=== PATIENT | male | born 1950 | race Caucasian/White ===

== ENCOUNTER 2019-12-09 13:48 | Inpatient (IN) ==
[~2019-12-09 13:48] MED LIST: *HR* OxyCODONE Immed Rel 5 MG TABLET PO ONE; Acetaminophen IV 1,000 MG/100 ML INFUS..BTL IVPB ONE; Pregabalin 75 MG CAPSULE PO ONE
[2019-12-09] MEDS ORDERED: Ringers Solution, Lactated 1,000 ML IVC SCH ×2 (14:30→19:44)
[2019-12-09] MEDS ORDERED: Clindamycin 900 MG/50 ML 900 MG/50 ML IV.SOLN IVPB ONE (14:40)
[2019-12-09] MEDS ORDERED: Vancomycin 1,500 MG/265 ML IV.SOLN IVPB ONE (14:43)
[2019-12-09] MEDS ORDERED: Lidocaine -MPF 2% 2 ML VIAL ONE (15:25)
[2019-12-09] MEDS ORDERED: *HR* Midazolam HCl 2 MG/2 ML VIAL ONE (15:38)
[2019-12-09] MEDS ORDERED: *HR* FentaNYL (PF) 100 MCG/2 ML VIAL ONE (15:38)
[2019-12-09] MEDS ORDERED: *HR* HYDROmorphone PF 0.5 MG/0.5 ML SYRINGE IVP PRN (15:39)
[2019-12-09] MEDS ORDERED: *HR* Meperidine 25 MG/ML SYRINGE IVP PRN (15:39)
[2019-12-09] MEDS ORDERED: Ondansetron 4 MG/2 ML VIAL IVP ONE (15:39)
[2019-12-09] MEDS ORDERED: Ethanol\\Acetic Acid\\Na Ace\\Ben 1,000 ML IRRIG.SOLN IR ONE (16:00)
[2019-12-09] MEDS ORDERED: Vancomycin 1,000 MG VIAL ONE (16:00)
[2019-12-09] MEDS ORDERED: Tranexamic Acid 1,000 MG/10 ML VIAL ONE (16:28)
[2019-12-09] MEDS ORDERED: *HR* PHENYLEPHRINE 1,000 MCG/10 ML SYRINGE IVP ONE (16:41)
[2019-12-09] MEDS ORDERED: Total Joint Mixture (50 ml) INTRAART ONE (16:45)
[2019-12-09] MEDS ORDERED: *HR* HYDROMORPHONE 2 MG/ML VIAL ONE (16:45)
[2019-12-09] MEDS ORDERED: EPHEDrine 50 MG/ML VIAL ONE (16:51)
[2019-12-09] MEDS ORDERED: *HR* Vasopressin 20 UNIT/ML VIAL ONE (17:06)
[2019-12-09 18:16] LABS: Basophils % 0.3 %; Eosinophils # 0.1 K/mcL (0.0-0.6); Eosinophils % 1.6 %; Hematocrit 30.6 % (37.5-50.1); Hemoglobin 9.9 g/dL (12.9-16.9); Immature Granulocytes % 0.5 % (0-4); Lymphocytes # 1.7 K/mcL (0.6-4.6); Lymphocytes % 19.4 %; Mean Corpuscular HGB Conc 32.4 g/dL (31.6-35.5); Mean Corpuscular Volume 86.4 fL (83.0-100.0); Mean Platelet Volume 10.3 fL (9.4-12.4); Monocytes # 0.6 K/mcL (0.0-1.3); Monocytes % 7.4 %; Neutrophils # 6.1 K/mcL (1.6-8.9); Platelet Count 119 K/mcL (140-400); Red Blood Count 3.54 M/mcL (4.19-5.50); Segmented Neutrophils % 70.8 %; White Blood Count 8.6 K/mcL (4.3-11.1)
[2019-12-09] MEDS ORDERED: Albumin Human 5% 12.5 GM/250 ML IV.SOLN ONE (18:21)
[2019-12-09 18:44] LABS: Reactive Lymphocytes Present (Not Present)
[2019-12-09 19:23] LABS: Hematocrit 26.9 % (37.5-50.1); Hemoglobin 8.5 g/dL (12.9-16.9)
[2019-12-09] MEDS ORDERED: *HR* Promethazine 25 MG/ML VIAL IVP PRN (19:44)
[2019-12-09] MEDS ORDERED: *HR* Dextrose 50 % in Water (Vial) 50 ML VIAL IVP PRN (19:44)
[2019-12-09] MEDS ORDERED: Naloxone 0.4 MG/ML INJ IVP PRN (19:44)
[2019-12-09] MEDS ORDERED: Dextrose Gel 15 GM/37.5 ML TUBE PO PRN ×2 (19:44)
[2019-12-09] MEDS ORDERED: Ondansetron 4 MG/2 ML VIAL IVP PRN (19:44)
[2019-12-09] MEDS ORDERED: Sennosides 8.6 MG TABLET PO PRN (19:44)
[2019-12-09] MEDS ORDERED: HYDROcodone BIT/Homatropine 5 MG TABLET PO PRN (19:44)
[2019-12-09] MEDS ORDERED: D5% in Water 1,000 ML IVC PRN (19:44)
[2019-12-09] MEDS ORDERED: MOM Conc 10 ML UD.LIQ PO PRN (19:44)
[2019-12-09] MEDS: Ascorbic Acid 500 MG TABLET PO SCH (21:17)
[2019-12-09] MEDS: Insulin LISPRO 300 UNITS/3 ML VIAL SQ SCH ×2 (21:17→21:48)
[2019-12-10] MEDS ORDERED: Vancomycin 1,500 MG/265 ML IV.SOLN IVPB ONE (04:30)
[2019-12-10 05:26] LABS: BUN/Creatinine Ratio 16 (6-26); Blood Urea Nitrogen 21 mg/dL (8-23); Calcium 8.7 mg/dL (8.6-10.3); Carbon Dioxide 20 mEq/L (23-29); Chloride 96 mEq/L (98-107); Glucose 379 mg/dL (70-105); Osmolality,Calculated 287 (280-300); Potassium 3.9 mEq/L (3.5-5.1); Sodium 129 mEq/L (136-145); eGFR For African Americans > 60 (> 60); eGFR For Non-African Americans 56 (> 60)
[2019-12-10] MEDS ORDERED: allopurinoL 300 MG TABLET PO SCH (06:45)
[2019-12-10] MEDS ORDERED: GlipiZIDE 5 MG TABLET PO SCH (06:45)
[2019-12-10] MEDS ORDERED: NON-FORMULARY MEDICATION 1 EACH EACH (Amlodipine Besylate 10 MG) PO SCH (06:45)
[2019-12-10] MEDS ORDERED: NON-FORMULARY MEDICATION 1 EACH EACH (Pravastatin Sodium [Pravachol] 40 MG) PO SCH (06:45)
[2019-12-10 06:59] LABS: Basophils % 0.1 %; Hematocrit 25.4 % (37.5-50.1); Hemoglobin 8.1 g/dL (12.9-16.9); Immature Granulocytes % 0.7 % (0-4); Lymphocytes # 0.7 K/mcL (0.6-4.6); Lymphocytes % 5.3 %; Mean Corpuscular HGB Conc 31.9 g/dL (31.6-35.5); Mean Corpuscular Hemoglobin 26.8 pg (28.0-33.3); Mean Corpuscular Volume 84.1 fL (83.0-100.0); Mean Platelet Volume 10.1 fL (9.4-12.4); Monocytes # 0.4 K/mcL (0.0-1.3); Monocytes % 3.1 %; Neutrophils # 11.9 K/mcL (1.6-8.9); Platelet Count 201 K/mcL (140-400); Red Blood Count 3.02 M/mcL (4.19-5.50); Red Cell Distribution Width 14.1 % (11.5-14.5); Segmented Neutrophils % 90.8 %; White Blood Count 13.1 K/mcL (4.3-11.1)
[2019-12-10] MEDS ORDERED: Multivit/Ca/Min/Fe/FA 1 TAB TABLET PO SCH (09:00)
[2019-12-10] MEDS ORDERED: Aspirin Enteric Coated 81 MG Tablet PO SCH ×2 (09:00)
[2019-12-10] MEDS: Insulin LISPRO 300 UNITS/3 ML VIAL SQ SCH ×4 (09:20→21:02)
[2019-12-10] MEDS: Ascorbic Acid 500 MG TABLET PO SCH ×2 (09:21→16:27)
[2019-12-10] MEDS ORDERED: Lisinopril-HCTZ 20-12.5mg TABLET PO SCH (11:00)
[2019-12-10] MEDS ORDERED: Insulin DETEMIR 100 UNIT/ML X5UNITS SQ ONE (11:07)
[2019-12-10] MEDS: *HR* OxyCODONE Immed Rel 5 MG TABLET PO PRN ×2 (11:46→16:27)
[2019-12-10 14:17] LABS: Estimated Average Glucose 137 mg/dl
[2019-12-11] MEDS: *HR* OxyCODONE Immed Rel 5 MG TABLET PO PRN (04:10)
[2019-12-11 04:21] VITALS: BP 134/60
[2019-12-11] MEDS ORDERED: Vancomycin 1,500 MG/265 ML IV.SOLN IVPB SCH (05:00)
[2019-12-11 06:34] LABS: Basophils % 0.2 %; Eosinophils % 0.2 %; Hematocrit 24.7 % (37.5-50.1); Hemoglobin 8.2 g/dL (12.9-16.9); Immature Granulocytes % 0.9 % (0-4); Lymphocytes # 1.6 K/mcL (0.6-4.6); Lymphocytes % 9.3 %; Mean Corpuscular HGB Conc 33.2 g/dL (31.6-35.5); Mean Corpuscular Hemoglobin 27.9 pg (28.0-33.3); Mean Platelet Volume 10.3 fL (9.4-12.4); Monocytes # 1.1 K/mcL (0.0-1.3); Monocytes % 6.2 %; Neutrophils # 14.3 K/mcL (1.6-8.9); Platelet Count 268 K/mcL (140-400); Red Blood Count 2.94 M/mcL (4.19-5.50); Red Cell Distribution Width 14.4 % (11.5-14.5); Segmented Neutrophils % 83.2 %; White Blood Count 17.3 K/mcL (4.3-11.1)
[2019-12-11 06:45] LABS: BUN/Creatinine Ratio 17 (6-26); Blood Urea Nitrogen 16 mg/dL (8-23); Calcium 9.3 mg/dL (8.6-10.3); Carbon Dioxide 23 mEq/L (23-29); Chloride 105 mEq/L (98-107); Glucose 100 mg/dL (70-105); Osmolality,Calculated 285 (280-300); Potassium 3.5 mEq/L (3.5-5.1); Sodium 137 mEq/L (136-145); eGFR For African Americans > 60 (> 60); eGFR For Non-African Americans > 60 (> 60)
[2019-12-11] MEDS ORDERED: Insulin DETEMIR 100 UNIT/ML X5UNITS SQ SCH (09:00)
[2019-12-11] MEDS ORDERED: allopurinoL 100 MG TABLET PO SCH (09:00)
== END 2019-12-11 08:04 | disposition left against medical advice (07) | DRG 468 ==
LOC: SAMDAY 13:48 → 3NENU 19:36
PROVIDERS: ADMIT Orthopaedic Surgery; ATTEND Orthopaedic Surgery

== ENCOUNTER 2020-01-11 14:56 | Inpatient (IN) ==
[2020-01-11 16:25] LABS: Calcium 8.8 mg/dL (8.6-10.3); Potassium 2.7 mEq/L (3.5-5.1)
[2020-01-11] MEDS ORDERED: 0.9 % Sodium Chloride 1,000 ML IVC ONE (16:26)
[2020-01-11] MEDS ORDERED: Potassium Chloride Elixir 20 MEQ/15 ML UDC PO ONE (16:28)
[2020-01-11 16:59] LABS: Basophils % 0.3 %; Eosinophils # 0.1 K/mcL (0.0-0.6); Eosinophils % 0.9 %; Hemoglobin 7.9 g/dL (12.9-16.9); Immature Granulocytes % 0.6 % (0-4); Lymphocytes # 0.9 K/mcL (0.6-4.6); Lymphocytes % 9.2 %; Mean Corpuscular HGB Conc 30.4 g/dL (31.6-35.5); Mean Corpuscular Hemoglobin 26.1 pg (28.0-33.3); Mean Corpuscular Volume 85.8 fL (83.0-100.0); Monocytes # 1.1 K/mcL (0.0-1.3); Monocytes % 11.1 %; Neutrophils # 7.5 K/mcL (1.6-8.9); Platelet Count 342 K/mcL (140-400); Red Blood Count 3.03 M/mcL (4.19-5.50); Segmented Neutrophils % 77.9 %; White Blood Count 9.6 K/mcL (4.3-11.1)
[2020-01-11] MEDS ORDERED: amLODIPine 5 MG TABLET PO ONE (17:04)
[2020-01-11] MEDS ORDERED: *HR* Promethazine 25 MG/ML VIAL IVP PRN (17:13)
[2020-01-11] MEDS ORDERED: Mag Hydrox/Al Hydrox/Simeth 30 ML UDC PO PRN (17:13)
[2020-01-11] MEDS ORDERED: Acetaminophen 325 MG TABLET PO PRN (17:13)
[2020-01-11] MEDS ORDERED: MOM Conc 10 ML UD.LIQ PO PRN (17:13)
[2020-01-11] MEDS ORDERED: Ondansetron 4 MG/2 ML VIAL IVP PRN (17:13)
[2020-01-11] MEDS ORDERED: *HR* HYDROcodone/Acet 5/325 mg TABLET PO PRN (17:13)
[2020-01-11] MEDS ORDERED: Naloxone 0.4 MG/ML INJ IVP PRN (17:13)
[2020-01-11] MEDS ORDERED: *HR* Dextrose 50 % in Water (Vial) 50 ML VIAL IVP PRN (17:17)
[2020-01-11] MEDS ORDERED: D5% in Water 1,000 ML IVC PRN (17:17)
[2020-01-11] MEDS ORDERED: Dextrose Gel 15 GM/37.5 ML TUBE PO PRN ×2 (17:17)
[2020-01-11] MEDS: 0.9 % Sodium Chloride 1,000 ML IVC SCH (18:21)
[2020-01-11] MEDS: *HR* Heparin 5,000 UNIT/ML VIAL SQ SCH (18:22)
[2020-01-11 20:56] LABS: Bacteria,Urine Few per hpf (None-Few); Bilirubin,Urine Negative (Negative); Blood,Urine Negative (Negative); Clarity,Urine Clear (Clear); Color,Urine Dark-Yellow (Yellow); Glucose,Urine (UA) 50 mg/dL (Normal); Hyaline Casts,Urine Few per lpf (None Seen); Ketones,Urine Negative (Negative); Leukocyte Esterase,Urine Negative (Negative); Mucus,Urine Few per lpf (None-Few); Nitrite,Urine Negative (Negative); PH,Urine 5.5 pH Units (5.0-8.0); Protein,Urine 70 mg/dL (Neg-Trace); RBC,Urine 0-3 per hpf (0-3); Specific Gravity,Urine 1.026 (1.010-1.025); Squamous Epithelial Cell,Urine Few per hpf (None-Few); Urobilinogen,Urine Normal (Normal); WBC,Urine 15-30 per hpf (0-3)
[2020-01-11] MEDS: Insulin LISPRO 300 UNITS/3 ML VIAL SQ SCH (21:00)
[2020-01-11] MEDS: allopurinoL 300 MG TABLET PO SCH (21:01)
[2020-01-11] MEDS: Aspirin Enteric Coated 81 MG Tablet PO SCH (21:01)
[2020-01-11] MEDS: amLODIPine 5 MG TABLET PO SCH (21:01)
[2020-01-12 01:12] LABS: Basophils % 0.3 %; Eosinophils # 0.1 K/mcL (0.0-0.6); Eosinophils % 0.8 %; Hematocrit 26.2 % (37.5-50.1); Hemoglobin 7.6 g/dL (12.9-16.9); Immature Granulocytes % 0.6 % (0-4); Lymphocytes % 8.7 %; Mean Corpuscular Hemoglobin 25.5 pg (28.0-33.3); Mean Corpuscular Volume 87.9 fL (83.0-100.0); Monocytes % 9.4 %; Neutrophils # 8.7 K/mcL (1.6-8.9); Platelet Count 366 K/mcL (140-400); Red Blood Count 2.98 M/mcL (4.19-5.50); Red Cell Distribution Width 17.2 % (11.5-14.5); Segmented Neutrophils % 80.2 %; White Blood Count 10.9 K/mcL (4.3-11.1)
[2020-01-12 01:29] LABS: Albumin 2.9 g/dL (3.5-5.7); Bilirubin,Total 0.5 mg/dL (0.3-1.0); Calcium 8.6 mg/dL (8.6-10.3); Globulin 2.8 g/dL (2.4-3.5); Magnesium 1.8 mg/dL (1.6-2.6); Phosphorous 5.8 mg/dL (2.7-4.5); Potassium 3.3 mEq/L (3.5-5.1); Total Protein 5.7 g/dL (6.4-8.9)
[2020-01-12] MEDS: 0.9 % Sodium Chloride 1,000 ML IVC SCH (03:00)
[2020-01-12] MEDS ORDERED: Ipratropium/Albuterol Neb 3 ML IH ONE (03:23)
[2020-01-12] MEDS: Ipratropium Neb 0.5 MG NEBULIZER IH SCH ×4 (03:45→21:58)
[2020-01-12] MEDS: Levalbuterol Neb 1.25 MG/3 ML IH SCH ×4 (03:45→21:58)
[2020-01-12] MEDS: *HR* Heparin 5,000 UNIT/ML VIAL SQ SCH ×2 (05:33→17:38)
[2020-01-12] MEDS: Insulin LISPRO 300 UNITS/3 ML VIAL SQ SCH ×4 (07:57→21:17)
[2020-01-12] MEDS ORDERED: cefTRIAXone 2,000 MG in Water for inj. (sterile) 20 ML IVP SCH (09:00)
[2020-01-12] MEDS ORDERED: [UNRECOGNIZED DRUG - OTHER] IV SCH (09:00)
[2020-01-12] MEDS ORDERED: Insulin DETEMIR 100 UNIT/ML X5UNITS SQ SCH (09:00)
[2020-01-12] MEDS ORDERED: CEFTRIAXONE NA IV SCH (09:00)
[2020-01-12] MEDS ORDERED: DEXTROSE ISO IV SCH (09:00)
[2020-01-12] MEDS ORDERED: Perflutren Lipid Microsphere 1.3 ML in 0.9 % Sodium Chloride 8.7 ML IVP PRN (10:11)
[2020-01-12] MEDS ORDERED: Nicotine 14 MG PATCH.TD24 TD SCH (10:30)
[2020-01-12] MEDS ORDERED: Finasteride 5 MG TABLET PO SCH (11:00)
[2020-01-12] MEDS: Budesonide/Formoterol 80/4.5 1 PUFF INH IH SCH ×2 (11:37→21:58)
[2020-01-12] MEDS ORDERED: Ringers Solution, Lactated 1,000 ML IVC SCH (16:45)
[2020-01-12] MEDS ORDERED: methylPREDNISolone 125 MG/2 ML VIAL IVP ONE (17:41)
[2020-01-12 18:25] LABS: ABG Base Excess -2 mEq/L (-2 to 3); ABG HCO3 21 mEq/L (21-27); ABG Oxygen Saturation 95 % (95-98); ABG PCO2 30 mmHg (35-45); ABG PH 7.46 pH Units (7.32-7.45); ABG PO2 71 mmHg (85-104); ABG TCO2 22 mEq/L (20-26)
[2020-01-12] MEDS ORDERED: *HR* LORazepam 2 MG/ML VIAL IVP ONE (18:35)
[2020-01-12] MEDS ORDERED: *HR* Alteplase (Cathflo) 2 MG VIAL IVP ONE (19:37)
[2020-01-12] MEDS: allopurinoL 300 MG TABLET PO SCH (21:15)
[2020-01-12] MEDS: Aspirin Enteric Coated 81 MG Tablet PO SCH (21:15)
[2020-01-12] MEDS: amLODIPine 5 MG TABLET PO SCH (21:16)
[2020-01-13] MEDS ORDERED: MethylPREDNISolone 40 MG/ML VIAL IVP SCH
[2020-01-13] MEDS ORDERED: *HR* LORazepam 2 MG/ML VIAL IVP ONE (00:33)
[2020-01-13] MEDS ORDERED: *HR* Metoprolol 5 MG/5 ML VIAL IVP PRN (00:34)
[2020-01-13 01:14] LABS: Hematocrit 27.2 % (37.5-50.1); Mean Corpuscular HGB Conc 29.4 g/dL (31.6-35.5); Mean Corpuscular Hemoglobin 25.6 pg (28.0-33.3); Mean Corpuscular Volume 86.9 fL (83.0-100.0); Platelet Count 402 K/mcL (140-400); Red Blood Count 3.13 M/mcL (4.19-5.50); Red Cell Distribution Width 17.2 % (11.5-14.5)
[2020-01-13 01:34] LABS: Rheumatoid Factor 44 IU/mL (Less than 14)
[2020-01-13] MEDS ORDERED: Insulin LISPRO 300 UNITS/3 ML VIAL SQ ONE (01:45)
[2020-01-13 01:50] LABS: Protein/Creatinine Ratio,Urine 0.3 mg/mg (0.00-0.20); Sodium, Urine 13.1 mEq/L
[2020-01-13 01:53] LABS: Alanine Aminotransferase 18 Units/L (7-52); Albumin 3.1 g/dL (3.5-5.7); Alkaline Phosphatase 202 Units/L (34-104); Aspartate Amino Transferase 63 Units/L (13-39); BUN/Creatinine Ratio 12 (6-26); Bilirubin,Total 0.5 mg/dL (0.3-1.0); Blood Urea Nitrogen 47 mg/dL (8-23); Calcium 8.9 mg/dL (8.6-10.3); Carbon Dioxide 19 mEq/L (23-29); Chloride 97 mEq/L (98-107); Ferritin 143 ng/mL (20-250); Globulin 3.1 g/dL (2.4-3.5); Glucose 268 mg/dL (70-105); Iron < 10 mcg/dL (65-175); Magnesium 1.9 mg/dL (1.6-2.6); Osmolality,Calculated 302 (280-300); Phosphorous 6.8 mg/dL (2.7-4.5); Potassium 3.6 mEq/L (3.5-5.1); Sodium 135 mEq/L (136-145); Total Protein 6.2 g/dL (6.4-8.9); Transferrin 266 mg/dL (203-362); eGFR For African Americans 19 (> 60); eGFR For Non-African Americans 16 (> 60)
[2020-01-13 02:04] LABS: Folate > 22.3 ng/mL (3.0-16.0); Vitamin B12 > 1500 pg/mL (250-1100)
[2020-01-13 02:41] LABS: Complement C3 96 mg/dL (87-200)
[2020-01-13] MEDS: Ipratropium Neb 0.5 MG NEBULIZER IH SCH ×4 (03:49→21:59)
[2020-01-13] MEDS: Levalbuterol Neb 1.25 MG/3 ML IH SCH ×4 (03:49→21:59)
[2020-01-13 04:04] LABS: ABG Base Excess -5 mEq/L (-2 to 3); ABG HCO3 19 mEq/L (21-27); ABG Oxygen Saturation 98 % (95-98); ABG PCO2 28 mmHg (35-45); ABG PH 7.44 pH Units (7.32-7.45); ABG PO2 94 mmHg (85-104); ABG TCO2 20 mEq/L (20-26)
[2020-01-13] MEDS ORDERED: DilTIAZem 50 MG/50 ML IV.SOLN IVC SCH (04:15)
[2020-01-13] MEDS: *HR* Heparin 5,000 UNIT/ML VIAL SQ SCH (05:30)
[2020-01-13] MEDS ORDERED: Perflutren Lipid Microsphere 1.3 ML in 0.9 % Sodium Chloride 8.7 ML IVP PRN (07:23)
[2020-01-13] MEDS ORDERED: Ondansetron 4 MG/2 ML VIAL IVP PRN (07:23)
[2020-01-13] MEDS ORDERED: Dextrose Gel 15 GM/37.5 ML TUBE PO PRN ×2 (07:23)
[2020-01-13] MEDS ORDERED: Acetaminophen 325 MG TABLET PO PRN (07:23)
[2020-01-13] MEDS ORDERED: *HR* Dextrose 50 % in Water (Vial) 50 ML VIAL IVP PRN (07:23)
[2020-01-13] MEDS ORDERED: Naloxone 0.4 MG/ML INJ IVP PRN (07:23)
[2020-01-13] MEDS ORDERED: *HR* Promethazine 25 MG/ML VIAL IVP PRN (07:23)
[2020-01-13] MEDS ORDERED: D5% in Water 1,000 ML IVC PRN (07:23)
[2020-01-13] MEDS ORDERED: MOM Conc 10 ML UD.LIQ PO PRN (07:23)
[2020-01-13] MEDS ORDERED: Mag Hydrox/Al Hydrox/Simeth 30 ML UDC PO PRN (07:23)
[2020-01-13] MEDS ORDERED: Insulin LISPRO 300 UNITS/3 ML VIAL SQ SCH (07:30)
[2020-01-13] MEDS: DilTIAZem 50 MG/50 ML IV.SOLN IVC SCH ×2 (08:48→17:51)
[2020-01-13] MEDS ORDERED: Insulin DETEMIR 100 UNIT/ML X5UNITS SQ SCH ×2 (09:00→21:00)
[2020-01-13] MEDS: Nicotine 14 MG PATCH.TD24 TD SCH (09:11)
[2020-01-13] MEDS: Insulin LISPRO 300 UNITS/3 ML VIAL SQ SCH ×5 (09:15→20:10)
[2020-01-13] MEDS: cefTRIAXone 2,000 MG in Water for inj. (sterile) 20 ML IVP SCH (09:15)
[2020-01-13] MEDS: MethylPREDNISolone 40 MG/ML VIAL IVP SCH ×2 (09:16→17:02)
[2020-01-13] MEDS ORDERED: *HR* Heparin 5,000 UNIT/ML VIAL IVP PRN ×2 (10:18)
[2020-01-13] MEDS ORDERED: *HR* Heparin 5,000 UNIT/ML VIAL IVP ONE (10:18)
[2020-01-13] MEDS: Budesonide/Formoterol 80/4.5 1 PUFF INH IH SCH ×2 (10:51→21:59)
[2020-01-13] MEDS ORDERED: Sodium Bicarbonate 75 MEQ in 0.45 % Sodium Chloride 1,000 ML IVC SCH (11:15)
[2020-01-13 11:35] LABS: Heparin anti-factor XA UFH 0.05 IU/mL (0.30-0.70); INR 1.1; Prothrombin Time 12.3 Seconds (9.4-12.1)
[2020-01-13] MEDS: Heparin 25,000UNIT/250ML 1/2NS 25,000 UNIT/250 ML IV.SOLN IVC SCH (12:06)
[2020-01-13] MEDS: Calcium Acetate 667 MG CAPSULE PO SCH ×2 (12:19→17:02)
[2020-01-13] MEDS: *HR* HYDROcodone/Acet 5/325 mg TABLET PO PRN (12:19)
[2020-01-13] MEDS ORDERED: *HR* Heparin 5,000 UNIT/ML VIAL SQ SCH (18:00)
[2020-01-13] MEDS: amLODIPine 5 MG TABLET PO SCH (19:47)
[2020-01-13] MEDS: allopurinoL 300 MG TABLET PO SCH (19:47)
[2020-01-13] MEDS: Aspirin Enteric Coated 81 MG Tablet PO SCH (19:47)
[2020-01-13] MEDS ORDERED: amLODIPine 5 MG TABLET PO SCH (21:00)
[2020-01-14] MEDS: MethylPREDNISolone 40 MG/ML VIAL IVP SCH ×2 (01:00→07:49)
[2020-01-14 02:05] LABS: Albumin 2.9 g/dL (3.5-5.7); Calcium 8.5 mg/dL (8.6-10.3); Phosphorous 7.7 mg/dL (2.7-4.5); Potassium 3.8 mEq/L (3.5-5.1)
[2020-01-14] MEDS: Levalbuterol Neb 1.25 MG/3 ML IH SCH ×4 (03:32→21:39)
[2020-01-14] MEDS: Ipratropium Neb 0.5 MG NEBULIZER IH SCH ×4 (03:32→21:39)
[2020-01-14] MEDS: Heparin 25,000UNIT/250ML 1/2NS 25,000 UNIT/250 ML IV.SOLN IVC SCH (05:05)
[2020-01-14] MEDS: Nicotine 14 MG PATCH.TD24 TD SCH (07:49)
[2020-01-14] MEDS: Calcium Acetate 667 MG CAPSULE PO SCH ×3 (07:50→17:41)
[2020-01-14] MEDS: Insulin LISPRO 300 UNITS/3 ML VIAL SQ SCH ×6 (07:52→20:54)
[2020-01-14] MEDS: cefTRIAXone 2,000 MG in Water for inj. (sterile) 20 ML IVP SCH (08:00)
[2020-01-14] MEDS ORDERED: Isovue-370 500 ML BOTTLE IVP ONE (08:17)
[2020-01-14] MEDS: *HR* HYDROcodone/Acet 5/325 mg TABLET PO PRN ×2 (09:25→20:31)
[2020-01-14] MEDS: Budesonide/Formoterol 80/4.5 1 PUFF INH IH SCH ×2 (10:22→21:39)
[2020-01-14] MEDS ORDERED: Ringers Solution, Lactated 1,000 ML IVC SCH (11:30)
[2020-01-14 11:49] LABS: Estimated Average Glucose 143 mg/dl
[2020-01-14] MEDS ORDERED: Gadolinium Contrast Agent (WT Based) IV PRN (15:28)
[2020-01-14] MEDS ORDERED: 0.9 % Sodium Chloride 1,000 ML IVC ONE (16:11)
[2020-01-14] MEDS ORDERED: Insulin LISPRO 300 UNITS/3 ML VIAL SQ SCH (17:00)
[2020-01-14] MEDS: *HR* Heparin 5,000 UNIT/ML VIAL SQ SCH (17:44)
[2020-01-14 18:47] LABS: Basophils % 0.1 %; Nucleated Red Blood Cells 0.1 /100 WBC (0)
[2020-01-14 18:48] LABS: Lymphocytes # 0.9 K/mcL (0.6-4.6); Red Blood Count 2.68 M/mcL (4.19-5.50); White Blood Count 28.6 K/mcL (4.3-11.1)
[2020-01-14 18:49] LABS: Hematocrit 23.6 % (37.5-50.1); Hemoglobin 7.1 g/dL (12.9-16.9); Immature Granulocytes % 0.8 % (0-4); Mean Corpuscular HGB Conc 30.1 g/dL (31.6-35.5); Mean Corpuscular Hemoglobin 26.5 pg (28.0-33.3); Mean Corpuscular Volume 88.1 fL (83.0-100.0); Mean Platelet Volume 10.4 fL (9.4-12.4); Monocytes # 1.2 K/mcL (0.0-1.3); Monocytes % 4.2 %; Neutrophils # 26.3 K/mcL (1.6-8.9); Platelet Count 464 K/mcL (140-400); Red Cell Distribution Width 17.3 % (11.5-14.5); Segmented Neutrophils % 91.9 %
[2020-01-14 19:20] LABS: Anisocytosis 1+ (Not Present)
[2020-01-14] MEDS: Aspirin Enteric Coated 81 MG Tablet PO SCH (20:40)
[2020-01-14] MEDS: amLODIPine 5 MG TABLET PO SCH (20:40)
[2020-01-14] MEDS: Sodium Bicarbonate 75 MEQ in 0.45 % Sodium Chloride 1,000 ML IVC SCH (20:40)
[2020-01-14] MEDS: allopurinoL 300 MG TABLET PO SCH (20:40)
[2020-01-14] MEDS ORDERED: Insulin DETEMIR 100 UNIT/ML X5UNITS SQ SCH (21:00)
[2020-01-15 02:25] LABS: Bacteria,Urine Moderate per hpf (None-Few); Bilirubin,Urine Negative (Negative); Blood,Urine Large (Negative); Clarity,Urine Ex.Turbid (Clear); Glucose,Urine (UA) 150 mg/dL (Normal); Ketones,Urine Trace mg/dL (Negative); Leukocyte Esterase,Urine Trace (Negative); Mucus,Urine Few per lpf (None-Few); Nitrite,Urine Negative (Negative); PH,Urine 5.5 pH Units (5.0-8.0); Protein,Urine >=300 mg/dL (Neg-Trace); RBC,Urine TNTC per hpf (0-3); Specific Gravity,Urine > 1.030 (1.010-1.025); Urobilinogen,Urine Normal (Normal); WBC,Urine TNTC per hpf (0-3)
[2020-01-15 02:40] LABS: Color,Urine Brown (Yellow)
[2020-01-15] MEDS: Ipratropium Neb 0.5 MG NEBULIZER IH SCH ×4 (03:53→21:23)
[2020-01-15] MEDS: Levalbuterol Neb 1.25 MG/3 ML IH SCH ×2 (03:53→10:47)
[2020-01-15] MEDS: Sodium Bicarbonate 75 MEQ in 0.45 % Sodium Chloride 1,000 ML IVC SCH ×2 (06:11→18:54)
[2020-01-15] MEDS: *HR* Heparin 5,000 UNIT/ML VIAL SQ SCH ×3 (06:12→20:45)
[2020-01-15 06:45] LABS: Hemoglobin 7.2 g/dL (12.9-16.9); Red Cell Distribution Width 17.2 % (11.5-14.5)
[2020-01-15 06:47] LABS: Hematocrit 24.2 % (37.5-50.1); Immature Reticulocyte % 48.7 % (11.0-38.0); Mean Corpuscular HGB Conc 29.8 g/dL (31.6-35.5); Mean Corpuscular Hemoglobin 25.7 pg (28.0-33.3); Mean Corpuscular Volume 86.4 fL (83.0-100.0); Mean Platelet Volume 9.9 fL (9.4-12.4); Nucleated Red Blood Cells 0.1 /100 WBC (0); Platelet Count 445 K/mcL (140-400); Retculocyte # 0.07 M/mcL (0.05-0.10); Reticulocyte % 2.3 % (1.6-2.8); White Blood Count 28.6 K/mcL (4.3-11.1)
[2020-01-15 07:01] LABS: % Iron Saturation 8 % (20-55); Iron 28 mcg/dL (65-175); Lactate Dehydrogenase 1097 Units/L (140-271); Transferrin 257 mg/dL (203-362)
[2020-01-15 07:02] LABS: Albumin 2.8 g/dL (3.5-5.7); Calcium 8.5 mg/dL (8.6-10.3); Phosphorous 8.6 mg/dL (2.7-4.5); Potassium 4.1 mEq/L (3.5-5.1)
[2020-01-15 07:25] LABS: Anisocytosis 1+ (Not Present); Large Platelets Present (Not Present); Monocytes # 0.6 K/mcL (0.0-1.3); Platelet Estimate Normal (Normal)
[2020-01-15] MEDS ORDERED: Insulin LISPRO 300 UNITS/3 ML VIAL SQ ONE (07:45)
[2020-01-15] MEDS: MethylPREDNISolone 40 MG/ML VIAL IVP SCH (08:00)
[2020-01-15] MEDS: Calcium Acetate 667 MG CAPSULE PO SCH ×4 (08:06→18:39)
[2020-01-15] MEDS: Nicotine 14 MG PATCH.TD24 TD SCH (08:07)
[2020-01-15] MEDS: Insulin DETEMIR 100 UNIT/ML X5UNITS SQ SCH ×2 (08:11→11:22)
[2020-01-15] MEDS: Insulin LISPRO 300 UNITS/3 ML VIAL SQ SCH ×2 (08:31→11:25)
[2020-01-15] MEDS: Budesonide/Formoterol 80/4.5 1 PUFF INH IH SCH ×2 (10:47→21:23)
[2020-01-15] MEDS: cefTRIAXone 2,000 MG in Water for inj. (sterile) 20 ML IVP SCH (11:23)
[2020-01-15] MEDS ORDERED: D5% in Water 1,000 ML IVC PRN (12:10)
[2020-01-15] MEDS ORDERED: Dextrose Gel 15 GM/37.5 ML TUBE PO PRN ×2 (12:10)
[2020-01-15] MEDS ORDERED: *HR* Dextrose 50 % in Water (Vial) 50 ML VIAL IVP PRN (12:10)
[2020-01-15] MEDS ORDERED: 0.9 % Sodium Chloride 500 ML IVC SCH (12:45)
[2020-01-15] MEDS ORDERED: *HR* Magnesium Sulfate 1 GM/2 ML VIAL ONE (13:32)
[2020-01-15] MEDS ORDERED: Levalbuterol Neb 0.63 MG/3 ML IH PRN (14:43)
[2020-01-15] MEDS: Piperacillin/Tazobactam 3.375 GM in 0.9 % Sodium Chloride Mini Bag 100 ML IVPB SCH (15:28)
[2020-01-15] MEDS: *HR* HYDROcodone/Acet 5/325 mg TABLET PO PRN ×2 (16:10→20:56)
[2020-01-15] MEDS: Insulin Human Regular 100 UNIT in 0.9 % Sodium Chloride 100 ML IVC SCH ×2 (16:12→23:14)
[2020-01-15] MEDS ORDERED: Insulin LISPRO 300 UNITS/3 ML VIAL SQ SCH ×2 (16:30→21:00)
[2020-01-15 17:48] LABS: ANA IgG by ELISA NONE DETECTED (None Detected)
[2020-01-15] MEDS: Aspirin Enteric Coated 81 MG Tablet PO SCH (20:46)
[2020-01-15] MEDS: allopurinoL 300 MG TABLET PO SCH (20:46)
[2020-01-15] MEDS: *HR* Metoprolol 5 MG/5 ML VIAL IVP PRN (20:47)
[2020-01-16 01:47] LABS: Alpha 2 Globulin (PEP) 0.75 g/dL (0.48-1.05); Beta Globulin (PEP) 0.84 g/dL (0.48-1.10)
[2020-01-16 02:46] LABS: Basophils % 0.1 %; Eosinophils % 0.1 %; Hemoglobin 7.1 g/dL (12.9-16.9); Monocytes % 5.9 %
[2020-01-16 02:48] LABS: Immature Granulocytes % 0.9 % (0-4); Immature Platelets 2.7 % (1.1-6.1); Lymphocytes # 0.6 K/mcL (0.6-4.6); Mean Corpuscular HGB Conc 29.6 g/dL (31.6-35.5); Mean Corpuscular Hemoglobin 25.3 pg (28.0-33.3); Mean Corpuscular Volume 85.4 fL (83.0-100.0); Mean Platelet Volume 10.6 fL (9.4-12.4); Monocytes # 0.9 K/mcL (0.0-1.3); Nucleated Red Blood Cells 0.2 /100 WBC (0); Platelet Count 349 K/mcL (140-400); Red Blood Count 2.81 M/mcL (4.19-5.50); White Blood Count 15.9 K/mcL (4.3-11.1)
[2020-01-16 03:06] LABS: Albumin 2.6 g/dL (3.5-5.7); Calcium 8.6 mg/dL (8.6-10.3); Potassium 3.9 mEq/L (3.5-5.1)
[2020-01-16] MEDS: Ipratropium Neb 0.5 MG NEBULIZER IH SCH ×4 (03:20→21:51)
[2020-01-16 03:29] LABS: Hepatitis B Surface Antigen Nonreactive (Nonreactive)
[2020-01-16] MEDS: Sodium Bicarbonate 75 MEQ in 0.45 % Sodium Chloride 1,000 ML IVC SCH ×2 (03:31→20:49)
[2020-01-16 03:46] LABS: Neutrophils # 14.2 K/mcL (1.6-8.9)
[2020-01-16 03:58] LABS: Hepatitis C Virus Antibody Nonreactive (Nonreactive)
[2020-01-16] MEDS: Piperacillin/Tazobactam 3.375 GM in 0.9 % Sodium Chloride Mini Bag 100 ML IVPB SCH ×2 (05:29→17:57)
[2020-01-16] MEDS: *HR* Heparin 5,000 UNIT/ML VIAL SQ SCH ×3 (05:30→20:48)
[2020-01-16] MEDS ORDERED: 0.9 % Sodium Chloride 250 ML IVC PRN (07:09)
[2020-01-16] MEDS ORDERED: *HR* Heparin 10,000 UNIT/10 ML VIAL IV PRN (07:09)
[2020-01-16] MEDS ORDERED: 0.9 % Sodium Chloride 1,000 ML PRIME SCH (07:15)
[2020-01-16 07:58] LABS: IFE Reflexed NOT DONE
[2020-01-16] MEDS: MethylPREDNISolone 40 MG/ML VIAL IVP SCH (08:02)
[2020-01-16] MEDS: Nicotine 14 MG PATCH.TD24 TD SCH (08:02)
[2020-01-16] MEDS: Calcium Acetate 667 MG CAPSULE PO SCH ×3 (08:03→17:48)
[2020-01-16] MEDS: Insulin Human Regular 100 UNIT in 0.9 % Sodium Chloride 100 ML IVC SCH ×2 (08:53→23:10)
[2020-01-16 09:18] LABS: Hepatitis B Surface Antibody < 3.10 mIU/mL
[2020-01-16] MEDS ORDERED: Heparin 1,000 UNITS/500 mL 500 ML ONE (09:31)
[2020-01-16] MEDS ORDERED: 0.9 % Sodium Chloride 500 ML ONE ×2 (10:01→15:22)
[2020-01-16] MEDS ORDERED: *HR* Heparin 5,000 UNIT/ML VIAL ONE (10:13)
[2020-01-16] MEDS ORDERED: *HR* Midazolam HCl 2 MG/2 ML VIAL IVP ONE (10:30)
[2020-01-16] MEDS ORDERED: *HR* FentaNYL (PF) 100 MCG/2 ML VIAL ONE (10:31)
[2020-01-16] MEDS ORDERED: *HR* Midazolam HCl 2 MG/2 ML VIAL ONE (10:31)
[2020-01-16] MEDS ORDERED: *HR* FentaNYL (PF) 100 MCG/2 ML VIAL IVP ONE (10:31)
[2020-01-16] MEDS: Budesonide/Formoterol 80/4.5 1 PUFF INH IH SCH ×2 (10:41→21:51)
[2020-01-16 12:31] LABS: Kappa Qnt Free Light Chains 63.87 mg/L (3.30-19.40); Lambda Qnt Free Light Chains 48.25 mg/L (5.71-26.30)
[2020-01-16 14:59] LABS: AFP Tumor Marker Non-Pregnant 3 ng/mL (0-9); Cancer Antigen-GI (CA 19-9) 696 U/mL (0-37)
[2020-01-16] MEDS ORDERED: *HR* Heparin 5,000 UNIT/ML VIAL IVP ONE (16:14)
[2020-01-16] MEDS ORDERED: *HR* Heparin 5,000 UNIT/ML VIAL IVP PRN ×2 (16:14)
[2020-01-16] MEDS ORDERED: Heparin 25,000UNIT/250ML 1/2NS 25,000 UNIT/250 ML IV.SOLN IVC SCH (16:15)
[2020-01-16] MEDS: Aspirin Enteric Coated 81 MG Tablet PO SCH (20:48)
[2020-01-16] MEDS: allopurinoL 300 MG TABLET PO SCH (20:48)
[2020-01-17] MEDS: Ipratropium Neb 0.5 MG NEBULIZER IH SCH ×4 (03:24→22:51)
[2020-01-17] MEDS: *HR* Heparin 5,000 UNIT/ML VIAL SQ SCH ×3 (05:17→22:17)
[2020-01-17] MEDS: Piperacillin/Tazobactam 3.375 GM in 0.9 % Sodium Chloride Mini Bag 100 ML IVPB SCH ×2 (05:18→19:57)
[2020-01-17 06:28] LABS: Basophils % 0.2 %; Eosinophils # 0.1 K/mcL (0.0-0.6); Eosinophils % 0.3 %; Hemoglobin 8.1 g/dL (12.9-16.9); Immature Granulocytes % 0.9 % (0-4); Lymphocytes # 1.1 K/mcL (0.6-4.6); Lymphocytes % 5.4 %; Mean Corpuscular HGB Conc 27.9 g/dL (31.6-35.5); Mean Corpuscular Hemoglobin 25.6 pg (28.0-33.3); Mean Corpuscular Volume 91.8 fL (83.0-100.0); Mean Platelet Volume 10.3 fL (9.4-12.4); Monocytes # 1.7 K/mcL (0.0-1.3); Monocytes % 8.9 %; Neutrophils # 16.4 K/mcL (1.6-8.9); Nucleated Red Blood Cells 0.2 /100 WBC (0); Platelet Count 303 K/mcL (140-400); Red Blood Count 3.16 M/mcL (4.19-5.50); Red Cell Distribution Width 16.8 % (11.5-14.5); Segmented Neutrophils % 84.3 %; White Blood Count 19.5 K/mcL (4.3-11.1)
[2020-01-17 06:44] LABS: Albumin 2.8 g/dL (3.5-5.7); Calcium 8.9 mg/dL (8.6-10.3); Magnesium 2.3 mg/dL (1.6-2.6); Potassium 3.7 mEq/L (3.5-5.1)
[2020-01-17 07:13] LABS: Anisocytosis 1+ (Not Present); Hypochromasia Present (Not Present); Platelet Estimate Normal (Normal)
[2020-01-17] MEDS ORDERED: 0.9 % Sodium Chloride 250 ML IVC PRN (07:31)
[2020-01-17] MEDS ORDERED: *HR* Heparin 10,000 UNIT/10 ML VIAL IV PRN (07:31)
[2020-01-17] MEDS ORDERED: 0.9 % Sodium Chloride 1,000 ML PRIME SCH (07:45)
[2020-01-17 08:43] LABS: Hematocrit 25.6 % (37.5-50.1); Hemoglobin 7.9 g/dL (12.9-16.9)
[2020-01-17 08:44] LABS: Heparin anti-factor XA UFH 0.14 IU/mL (0.30-0.70); INR 1.1; Prothrombin Time 12.1 Seconds (9.4-12.1)
[2020-01-17 08:47] LABS: Activated Partial Thrombo Time 23.8 Seconds (26.0-36.0)
[2020-01-17] MEDS: Budesonide/Formoterol 80/4.5 1 PUFF INH IH SCH ×2 (10:44→22:51)
[2020-01-17] MEDS: Calcium Acetate 667 MG CAPSULE PO SCH ×3 (14:39→19:56)
[2020-01-17] MEDS: Nicotine 14 MG PATCH.TD24 TD SCH (15:16)
[2020-01-17] MEDS ORDERED: Dextrose Gel 15 GM/37.5 ML TUBE PO PRN ×2 (18:26)
[2020-01-17] MEDS ORDERED: D5% in Water 1,000 ML IVC PRN (18:26)
[2020-01-17] MEDS ORDERED: *HR* Dextrose 50 % in Water (Vial) 50 ML VIAL IVP PRN (18:26)
[2020-01-17] MEDS: MethylPREDNISolone 40 MG/ML VIAL IVP SCH (19:44)
[2020-01-17] MEDS: Sodium Bicarbonate 75 MEQ in 0.45 % Sodium Chloride 1,000 ML IVC SCH (19:52)
[2020-01-17 20:07] LABS: Hematocrit 24.1 % (37.5-50.1); Hemoglobin 7.3 g/dL (12.9-16.9)
[2020-01-17] MEDS: amLODIPine 5 MG TABLET PO SCH (21:48)
[2020-01-17] MEDS: allopurinoL 300 MG TABLET PO SCH (21:48)
[2020-01-17] MEDS: Aspirin Enteric Coated 81 MG Tablet PO SCH (21:49)
[2020-01-17] MEDS: Sennosides/Docusate Sodium TABLET PO SCH (21:49)
[2020-01-17] MEDS: Insulin LISPRO 300 UNITS/3 ML VIAL SQ SCH (21:53)
[2020-01-18] MEDS: Sodium Bicarbonate 75 MEQ in 0.45 % Sodium Chloride 1,000 ML IVC SCH (00:27)
[2020-01-18] MEDS: *HR* Metoprolol 5 MG/5 ML VIAL IVP PRN (03:14)
[2020-01-18 03:33] LABS: Basophils % 0.1 %; Hematocrit 24.2 % (37.5-50.1); Hemoglobin 7.1 g/dL (12.9-16.9); Immature Granulocytes % 1.6 % (0-4); Lymphocytes # 1.4 K/mcL (0.6-4.6); Lymphocytes % 7.7 %; Mean Corpuscular HGB Conc 29.3 g/dL (31.6-35.5); Mean Corpuscular Hemoglobin 25.8 pg (28.0-33.3); Monocytes # 1.3 K/mcL (0.0-1.3); Monocytes % 7.3 %; Nucleated Red Blood Cells 0.2 /100 WBC (0); Platelet Count 313 K/mcL (140-400); Red Blood Count 2.75 M/mcL (4.19-5.50); Red Cell Distribution Width 17.1 % (11.5-14.5); Segmented Neutrophils % 83.3 %
[2020-01-18 03:56] LABS: Albumin 2.5 g/dL (3.5-5.7); Calcium 8.1 mg/dL (8.6-10.3); Phosphorous 8.2 mg/dL (2.7-4.5); Potassium 4.1 mEq/L (3.5-5.1)
[2020-01-18] MEDS: Ipratropium Neb 0.5 MG NEBULIZER IH SCH ×4 (03:56→22:24)
[2020-01-18] MEDS: *HR* Heparin 5,000 UNIT/ML VIAL SQ SCH ×3 (04:45→23:19)
[2020-01-18] MEDS: Piperacillin/Tazobactam 3.375 GM in 0.9 % Sodium Chloride Mini Bag 100 ML IVPB SCH (05:07)
[2020-01-18] MEDS ORDERED: 0.9 % Sodium Chloride 250 ML IVC PRN (07:21)
[2020-01-18] MEDS: Insulin LISPRO 300 UNITS/3 ML VIAL SQ SCH ×4 (08:58→23:20)
[2020-01-18] MEDS: Nicotine 14 MG PATCH.TD24 TD SCH (08:59)
[2020-01-18] MEDS: MethylPREDNISolone 40 MG/ML VIAL IVP SCH (08:59)
[2020-01-18] MEDS: Budesonide/Formoterol 80/4.5 1 PUFF INH IH SCH ×2 (10:48→22:24)
[2020-01-18] MEDS: Calcium Acetate 667 MG CAPSULE PO SCH ×3 (11:22→17:18)
[2020-01-18] MEDS: Sennosides/Docusate Sodium TABLET PO SCH ×2 (13:07→23:18)
[2020-01-18] MEDS: Doxycycline 100 MG in 0.9 % Sodium Chloride Mini Bag 100 ML IVPB SCH ×2 (14:31→23:37)
[2020-01-18] MEDS: Lactobacillus 1 EACH CAP.SPRINK PO SCH (23:18)
[2020-01-18] MEDS: amLODIPine 5 MG TABLET PO SCH (23:18)
[2020-01-18] MEDS: Aspirin Enteric Coated 81 MG Tablet PO SCH (23:19)
[2020-01-18] MEDS: allopurinoL 300 MG TABLET PO SCH (23:19)
[2020-01-19 03:41] LABS: Albumin 2.8 g/dL (3.5-5.7); Calcium 8.7 mg/dL (8.6-10.3); Phosphorous 7.8 mg/dL (2.7-4.5); Potassium 4.5 mEq/L (3.5-5.1)
[2020-01-19 03:42] LABS: Basophils % 0.2 %; Hematocrit 24.5 % (37.5-50.1); Hemoglobin 7.2 g/dL (12.9-16.9); Immature Granulocytes % 2.1 % (0-4); Lymphocytes # 1.2 K/mcL (0.6-4.6); Lymphocytes % 5.6 %; Mean Corpuscular HGB Conc 29.4 g/dL (31.6-35.5); Mean Corpuscular Hemoglobin 26.4 pg (28.0-33.3); Mean Corpuscular Volume 89.7 fL (83.0-100.0); Mean Platelet Volume 10.5 fL (9.4-12.4); Monocytes # 1.1 K/mcL (0.0-1.3); Neutrophils # 18.6 K/mcL (1.6-8.9); Nucleated Red Blood Cells 0.3 /100 WBC (0); Platelet Count 362 K/mcL (140-400); Red Blood Count 2.73 M/mcL (4.19-5.50); Red Cell Distribution Width 17.6 % (11.5-14.5); Segmented Neutrophils % 87.1 %; White Blood Count 21.3 K/mcL (4.3-11.1)
[2020-01-19] MEDS: Ipratropium Neb 0.5 MG NEBULIZER IH SCH ×4 (04:12→22:07)
[2020-01-19] MEDS: *HR* Heparin 5,000 UNIT/ML VIAL SQ SCH ×2 (05:24→14:28)
[2020-01-19] MEDS: Sodium Bicarbonate 75 MEQ in 0.45 % Sodium Chloride 1,000 ML IVC SCH ×2 (05:24→17:13)
[2020-01-19] MEDS: Insulin LISPRO 300 UNITS/3 ML VIAL SQ SCH ×4 (08:49→20:36)
[2020-01-19] MEDS: Sennosides/Docusate Sodium TABLET PO SCH (08:50)
[2020-01-19] MEDS: Lactobacillus 1 EACH CAP.SPRINK PO SCH ×2 (08:50→22:30)
[2020-01-19] MEDS: MethylPREDNISolone 40 MG/ML VIAL IVP SCH (08:50)
[2020-01-19] MEDS: Nicotine 14 MG PATCH.TD24 TD SCH (08:51)
[2020-01-19] MEDS: Calcium Acetate 667 MG CAPSULE PO SCH ×3 (08:55→16:25)
[2020-01-19] MEDS: Budesonide/Formoterol 80/4.5 1 PUFF INH IH SCH ×2 (09:25→22:09)
[2020-01-19] MEDS: Haloperidol Oral Conc 10 MG/5 ML UDC PO PRN ×2 (10:00→16:26)
[2020-01-19] MEDS: Doxycycline 100 MG in 0.9 % Sodium Chloride Mini Bag 100 ML IVPB SCH ×2 (10:32→22:45)
[2020-01-19] MEDS: Insulin DETEMIR 100 UNIT/ML X5UNITS SQ SCH (14:27)
[2020-01-19] MEDS: Aspirin Enteric Coated 81 MG Tablet PO SCH (22:30)
[2020-01-19] MEDS: amLODIPine 5 MG TABLET PO SCH (22:31)
[2020-01-19] MEDS: allopurinoL 300 MG TABLET PO SCH (22:32)
[2020-01-20] MEDS: *HR* Heparin 5,000 UNIT/ML VIAL SQ SCH ×2 (01:36→06:28)
[2020-01-20] MEDS: Haloperidol Oral Conc 10 MG/5 ML UDC PO PRN (02:06)
[2020-01-20] MEDS: Ipratropium Neb 0.5 MG NEBULIZER IH SCH (03:30)
[2020-01-20] MEDS ORDERED: methylPREDNISolone 125 MG/2 ML VIAL IVP ONE (05:05)
[2020-01-20] MEDS ORDERED: Levalbuterol Neb 1.25 MG/3 ML IH PRN (05:07)
[2020-01-20 05:21] LABS: ABG Base Excess -7 mEq/L (-2 to 3); ABG HCO3 18 mEq/L (21-27); ABG Oxygen Saturation 97 % (95-98); ABG PCO2 32 mmHg (35-45); ABG PH 7.35 pH Units (7.32-7.45); ABG PO2 89 mmHg (85-104); ABG TCO2 19 mEq/L (20-26)
[2020-01-20] MEDS: Budesonide/Formoterol 80/4.5 1 PUFF INH IH SCH (07:35)
[2020-01-20] MEDS: Insulin LISPRO 300 UNITS/3 ML VIAL SQ SCH (07:39)
[2020-01-20] MEDS: Lactobacillus 1 EACH CAP.SPRINK PO SCH (07:42)
[2020-01-20] MEDS: Calcium Acetate 667 MG CAPSULE PO SCH (07:42)
[2020-01-20] MEDS: Nicotine 14 MG PATCH.TD24 TD SCH (07:43)
[2020-01-20] MEDS: Sodium Bicarbonate 75 MEQ in 0.45 % Sodium Chloride 1,000 ML IVC SCH (07:49)
[2020-01-20] MEDS: Insulin DETEMIR 100 UNIT/ML X5UNITS SQ SCH (08:06)
[2020-01-20] MEDS ORDERED: predniSONE 20 MG TABLET PO SCH (09:00)
[2020-01-20] MEDS ORDERED: Acetaminophen 650 MG RECTAL SUPP RC PRN (10:17)
[2020-01-20] MEDS ORDERED: Atropine Sulfate 1% 40 DROP/2 ML BOTTLE SL PRN ×2 (10:18→15:35)
[2020-01-20] MEDS ORDERED: *HR* LORazepam Oral Conc 2 MG/ML SL PRN (10:18)
[2020-01-20] MEDS ORDERED: Haloperidol Lactate 5 MG/ML VIAL IVP PRN (10:20)
[2020-01-20] MEDS: Haloperidol Oral Conc 10 MG/5 ML UDC PO SCH ×2 (10:51→14:53)
[2020-01-20 10:56] VITALS: BP 145/101
[2020-01-20] MEDS ORDERED: *HR* FentaNYL (PF) 100 MCG/2 ML VIAL IVP ONE (13:43)
[2020-01-20] MEDS: *HR* FentaNYL (PF) 100 MCG/2 ML VIAL IVP PRN ×3 (14:51→17:35)
[2020-01-20] MEDS ORDERED: Scopolamine Patch 1.5 MG PATCH.TD72 TD SCH (15:45)
== END 2020-01-20 17:45 | disposition expired | DRG 862 ==
LOC: EMEROOARM 14:56 → 2ANU 14:56 → SUATTDRO 17:05 → 2ANU 17:42 → 2NNU 01-13 03:23 → SUATTDRO 01-13 11:28 → 2ANU 01-18 12:04
PROVIDERS: ADMIT Internal Medicine; ATTEND Pharmacist
PROC: ENDOEBX (2020-01-15 12:20)
PROC: IRLIVER (2020-01-16 12:00)